=== PATIENT | female | born 1945 | race Caucasian/White ===

== ENCOUNTER 2025-03-03 15:05 | Outpatient (CLI) | payer OTHER, SELFPAY | END 2025-03-03 15:06 | disposition home or self-care (01) | LOC: AMB 03-29 00:39 | PROVIDERS: Visit Provider Emergency Medicine | DX: R53.1 Weakness (principal) | CPT/HCPCS: A0425; A0427 ==

== ENCOUNTER 2025-03-03 15:46 | Emergency (ER) | payer OTHER, SELFPAY ==
[2025-03-03] VITALS (14 sets, daily range): BP systolic 122–208; BP diastolic 54–103; PULSE 57–80; RESP 10–25; O2SAT 95–100
--- NOTE | 2025-03-03 15:48 | CRLHL7_ITS ---
For Patients: As a result of the Cures Act, medical imaging exams and procedure reports are released immediately into your electronic medical record. You may view this report before your referring provider. If you have questions, please contact your health care provider. Indication: fall, altered mental status, left weakness, right seizure Technique: CT of the head without contrast. Coronal and sagittal reformats. Bone and soft tissue windows. Comparison: No prior studies available for comparison at this institution. Findings: There is a large heterogeneous intraparenchymal hematoma involving the majority of the right frontal lobe with diffuse adjacent vasogenic edema causing severe effacement of right cerebral sulci. The hematoma measures 6.2 centimeter transversely by 8.5 cm anterior-posterior by 7.3 cm craniocaudal. An additional 2.2 x 1.6 cm by 2.4 cm hematoma more inferiorly in the right frontal lobe appears to have a fluid fluid/hematocrit level. There is 2.1 centimeter [id number] midline shift. There is a 1.3 centimeter mixed attenuation subdural hematoma along the right frontal convexity and along the right temporal convexity with likely superimposed hygroma. Discussed with Dr. Garcia at 4:10 p.m. 03/03/2025. Impression : Large acute intraparenchymal hematoma in the right frontal lobe with acute subdural hematoma/hemato hygroma along the right frontal convexity and acute subdural hematoma along the right temporal lobe. Associated vasogenic edema with diffuse effacement of the right lateral ventricle and 3rd ventricle with 2 cm [id number] midline shift. Please note that all CT scans at this facility use dose modulation, iterative reconstruction, and/or weight-based dosing when appropriate to reduce radiation dose to as low as reasonably achievable. Dictated by Hans Bowie MD @ 03/03/2025 4:12:39 PM (Electronically Signed)
--- NOTE | 2025-03-03 15:48 | CRLHL7_ITS ---
For Patients: As a result of the Century Cures Act, medical imaging exams and procedure reports are released immediately into your electronic medical record. You may view this report before your referring provider. If you have questions, please contact your health care provider. INDICATION: Post intubation. TECHNIQUE: Chest 1 views. COMPARISON: None. FINDINGS: Cardiovascular and mediastinum: Heart size and vasculature are normal in caliber and appearance. Endotracheal tube with tip approximately 4.3 centimeters from the jason. Feeding tube with tip in the stomach and proximal port above the GE junction. Lungs and pleural spaces: Lungs are clear. No sign of infiltrate or mass. No sign of pleural effusion. No pneumothorax. Bones and soft tissues: No significant findings. IMPRESSION: Endotracheal tube with tip approximately 4.3 centimeters from the jason. Feeding tube with tip in the stomach and proximal port above the GE junction. Consider adjustment. Dictated by Oracio Hogue MD @ 03/03/2025 4:39:09 PM (Electronically Signed)
--- NOTE | 2025-03-03 15:49 | CRLHL7_ITS ---
For Patients: As a result of the Cures Act, medical imaging exams and procedure reports are released immediately into your electronic medical record. You may view this report before your referring provider. If you have questions, please contact your health care provider. Indication: Blunt trauma, altered mental status. Technique: Noncontrast axial CT of the cervical spine with coronal and sagittal reformats are provided. Comparison: No prior studies available for comparison at this institution. Findings: Normal alignment. No acute osseous or ligamentous abnormality. Grade 1 anterolisthesis at C7-T1. Moderate degenerative changes at the anterior atlantoaxial articulation. Multilevel disc and endplate degenerative changes. No fractures. No prevertebral or paraspinal edema. The lung apices are clear. C1-2: No spinal canal stenosis C2-3: No significant spinal canal stenosis or neural foraminal narrowing. C3-4: Severe left neural foraminal narrowing due to uncovertebral joint hypertrophy. No spinal canal stenosis C4-5: Shallow disc osteophyte complex and uncovertebral joint hypertrophy. Moderate left neural foraminal narrowing. No right neural foraminal narrowing. C5-6: No significant spinal canal stenosis. Uncovertebral joint hypertrophy. Shallow disc osteophyte complex. No neural foramen narrowing. C6-7: Uncovertebral joint hypertrophy and shallow disc osteophyte complex. Moderate left neural foraminal narrowing. No significant spinal canal stenosis or right neural foraminal narrowing. C7-T1: No significant spinal canal stenosis or neural foramen narrowing. Moderate left facet joint arthrosis. Impression : 1. No acute osseous abnormality. 2. Multilevel degenerative changes in the cervical spine detailed above. Please note that all CT scans at this facility use dose modulation, iterative reconstruction, and/or weight-based dosing when appropriate to reduce radiation dose to as low as reasonably achievable. Dictated by Hans Bowie MD @ 03/03/2025 4:21:23 PM (Electronically Signed)
[2025-03-03] MEDS: SUCCINYLCHOLINE 20 MG/ML INJ 140 MG IVP (16:02)
[2025-03-03] MEDS: ETOMIDATE 2 MG/ML inj 20 MG IVP (16:02)
[2025-03-03 16:04] LABS: Lactate* 1.6 mmol/L (0.5-1.9)
[2025-03-03 16:07] LABS: Hematocrit* 39.7 % (33.0-51.0); Hemoglobin* 13.5 gm/dL (12.0-16.0); Immature Granulocytes Pct Auto 1.5 %; Mean Corpuscular HGB Conc 34 gm/dL (32-36); Mean Corpuscular Hemoglobin 30 pg (26-34); Mean Corpuscular Volume 89 fL (80-100); RDW Coefficient of Variation % 12.3 % (11.5-15.5); Red Blood Count* 4.45 m/uL (4.00-5.20); White Blood Count* 11.02 K/uL (4.50-11.00)
[2025-03-03 16:10] LABS: Immature Granulocytes Abs Auto 0.20 K/uL (0.00-0.30); Lymphocytes Absolute Auto 2.10 K/uL (0.90-2.90); Slide Review Reflex No
[2025-03-03] MEDS: LEVETIRACETAM 1,000 mg/100 ml INFUSION 2000 MG IVPB (16:10)
[2025-03-03] MEDS: propofoL 1,000 MG/100 ML ML 9.75 MG IVPB (16:10)
[2025-03-03] MEDS: NICARDIPINE INFUSION 0.1 mg/ml 20 MG/200 ML BAG 50 MG IV (16:10)
[2025-03-03 16:23] LABS: Chloride* 100 mmol/L (96-114); Potassium* 4.1 mmol/L (3.6-5.1); Sodium* 132 mmol/L (135-149)
[2025-03-03 16:26] LABS: Anion Gap 12 mEq/L (7-15); Blood Urea Nitrogen* 20 mg/dL (7-30); Calcium* 8.7 mg/dL (8.4-10.6); Carbon Dioxide* 20 mmol/L (20-32); Creatinine* 0.6 mg/dL (0.5-1.5); Estimated Glomerular Filt Rate 92 ml/min; Glucose* 176 mg/dL (60-115)
[2025-03-03 16:31] LABS: Ethanol* < 0.01 % (0.01-0.03)
--- NOTE | 2025-03-03 16:33 | ED_ITS ---
HPI - General Adult General Chief complaint: Neuro Symptoms/Altered Deficit Stated complaint: stroke/TTA Time Seen by Provider: 03/03/25 15:48 History of Present Illness HPI narrative: History is limited by acuity and altered mental status 79-year-old female brought to the ER today by EMS. Report from EMS is that she lives at home her . She is generally healthy. No known meds or allergies. No chronic medical conditions. She was with her today and apparently feeling normal when she suddenly got dizzy and fell this afternoon. Sounds like the fall was somewhere around 2:00 p.m., estimated. Initially she was feeling dizzy but conversant. She was not able to get up sore called 911. When EMS arrived she was able to answer questions but seems a little bit slow with her of condition and mildly confused. Blood sugar was elevated. Not known to be diabetic. In route she had progressive somnolence. She is now minimally responsive. EMS notes that she had some seizure-like activity affecting her right upper extremity with her right arm flexed up ag ainst her chest. They are not sure if it was really a seizure or not. She is mostly kept her left arm extended. She is not moving her legs. She is not known to be anticoagulated. As far as we know no previous history. No previous strokes. was very shocked by her condition but will be coming in, in his own vehicle, once her son gets home. As far as we know she is full code. Exam Narrative: Exam Narrative: Primary Survey: A- patent. She is breathing. Nasal cannula in place. She has a little bit of clear saliva around her mouth but no signs of pooling secretions at this time. B- breathing easily. Lung sounds clear and equal. C- no active bleeding. Blood pressure stable. Symmetric pulses and cap refill in 4 extremities. D- somnolent. Response to pain by flexing her toes down. She does not really withdraw. GCS is 6 E1, V1, M4 she is holding her right arm flexed and her left arm extended. No clear seizure activity this time. Constitutional: Appears well-developed and well-nourished. Alert. Conversant. Non toxic. HENT: Head: No depressed skull fracture, Raccoon Eyes, Dior's sign, or hemotympanum. Face normal. TMs normal. Nose: Nose normal. Mouth/Throat: Oral mucosa is clear and moist. no trismus. Pharynx normal. Tonsils symmetric. No tonsillar enlargement, erythema, or exudate. Eyes: Gaze is conjugate. Not cooperating with EOM exam. She had her right pupil is larger than about 5 mm and minimally reactive. Left pupil is smaller a t about 3 mm and slightly reactive. round. No scleral icterus. Neck: Normal range of motion. Neck supple. No tracheal deviation present. No obvious midline step-off for signs of trauma. Cannot clear C-spine clinically. Cardiovascular: Normal rate, regular rhythm. No gallop. No friction rub. No murmur heard. Symmetric radial artery pulses Pulmonary/Chest: Effort normal. No stridor. No respiratory distress. No wheezes. No rales. No rhonchi . No tenderness. Abdominal: Soft. Nondistended. No bruising. No apparent tenderness. Musculoskeletal: RUE: Normal range of motion. No deformity LUE: Normal range of motion. No deformity RLE: Normal range of motion. No edema. No deformity LLE: Normal range of motion. No edema. No deformity Neurological: GCS is 6. Right sided flexion, left-sided extension. Unable do a complete sensory exam. Decreased GCS. Skin: Skin is warm and dry. No rash noted. No pallor. Normal capillary refill. Psychiatric: Not assessable Medical Decision Making MDM Narrative Medical decision making narrative: 79-year-old female brought to the ER today by EMS after she had a fall at home this afternoon. It sounds like she may have been dizzy and then fallen. She was a code stroke activation because of left-sided weakness per EMS and also possibly some seizure activity affecting her right upper extremity. I met the patient in the ER hallway and CT scanner. On my initial exam she was somnolent with a low GCS but protecting her airway. We got immediate noncontrast head CT and C-spine CT because of the fall. I reviewed the head CT scan while the patient was in the scanner as the images come off the machine. She has a very large right-sided intraparenchymal hemorrhage and also possibly a small right subdural. There does appear to be midline shift. We immediately transmitted these images to [facility] and placed a consult to [facility] discussed with neurosurgery as to whether not this bleed is survival. While this was occurring we brought the patient ER stable 1 established additional IV, tamika blood for labs, and took other resuscitative measures including oxygen, blood pressure monitoring. Blood pressure was hypertensive. We were preparing to intubate for RSI in anticipation of aggressive care if had a been thought that there was potential survive ability. I ordered RSI meds and Keppra for seizure prophylaxis. She was hypertensive, but will reassess blood pressure after RSI to see if her blood pressure comes down with pain control and sedation. I received a phone call back from the [facility], Dr. Celeste. She agrees the patient would warrant intubation and emergent transfer and will try to get neuro surgeries opinion about her imaging. RSI was performed using etomidate and succinylcholine. We ruled able to easily pass the tube into her trachea using a video laryngoscope. No hypoxia was encountered. We placed the patient on the ventilator with a goal of keeping her end-tidal CO2 a little bit below 40 mmHg. With goal was about 35. She was easy to ventilate. We are able to wean down her FiO2 below 50% keep her sats of 100. As we were doing this we noted that she was having dilation of her right pupil, about 5 or 6 mm. No other clear signs of herniation. We felt that our succinylcholine had had time to wear off and she was not still paralyzed. With signs of herniation we also ordered a bolus of 3% hypertonic saline for potential cerebral edema and impending herniation. While this was occurring her and son arrived. I met with the family to discuss her intracranial hemorrhage. We discussed that she is in critical condition and that there is a chance she could . I expressed my condolences. Her family are understandably shocked. We did try to repeat information a few times to make sure that they were comprehending. Post intubation chest x-ray confirmed appropriate position of our ET and OG tubes. No obvious pneumonia. Pupil exam remained about the same. Blood pressure remained elevated about 190/90. With intraparenchymal hemorrhage we did feel blood pressure control is indicated. We started the patient on nicardipine drip with a goal blood pressure to get her down to about 140 systolic. Cardozo catheter placed by nurses. CBC came back with a normal white count, normal hemoglobin, normal platelet counts. There was some delay in transport while we are awaiting arrival of ground EMS. Unfortunately helicopter is not flying today due to weather. She is transferred by ground EMS to go emergency to [facility]. Other labs came back with a glucose of 176. Venous lactic 1.6. Sodium 132. Coags are normal with an INR 1.0 and a APTT of 22. Alcohol undetectable. Lab Data Labs: Lab Results 03/03/25 Range/Units 16:00 WBC 11.02 H (4.50-11.00) K/uL RBC 4.45 (4.00-5.20) m/uL Hgb 13.5 (12.0-16.0) gm/dL Hct 39.7 (33.0-51.0) % MCV 89 (80-100) fL MCH 30 (26-34) pg MCHC 34 (32-36) gm/dL RDW Coeff of [place] 12.3 (11.5-15.5) % Plt Count 263 (140-440) K/uL Neut % (Auto) 69.5 (42.0-72.0) % Lymph % (Auto) 19.5 L (20-44) % Lanier % (Auto) 8.3 (0.0-11.0) % Eos % (Auto) 0.6 (0.0-7.0) % Baso % (Auto) 0.6 (0.0-3.0) % Neut # (Auto) 7.70 H (1.7-7.0) K/uL Lymph # (Auto) 2.10 (0.90-2.90) K/uL Lanier # (Auto) 0.90 (0.00-0.90) K/UL Eos # (Auto) 0.10 (0.00-0.50) K/uL Baso # (Auto) 0.10 (0.00-0.30) K/uL Abs Immat Gran (auto) 0.20 (0.00-0.30) K/uL Imm/Tot Granulo (auto) 1.5 % INR 1.00 (0.91-1.10) APTT 22 L (23-33) Seconds Sodium 132 L (135-149) mmol/L Potassium 4.1 (3.6-5.1) mmol/L Chloride 100 (96-114) mmol/L Carbon Dioxide 20 (20-32) mmol/L Anion Gap 12 (7-15) mEq/L BUN 20 (7-30) mg/dL Creatinine 0.6 (0.5-1.5) mg/dL Estimated GFR 92 ml/min Glucose 176 H (60-115) mg/dL Lactate 1.6 (0.5-1.9) mmol/L Calcium 8.7 (8.4-10.6) mg/dL Ethyl Alcohol < 0.01 (0.01-0.03) % Imaging Data CT scan - head: Attestation: I have reviewed the pertinent imaging results. My impression: Images reviewed as they were coming off the CT scanner. She has a large right- sided intraparenchymal bladder hemorrhage per probably also a small right-sided subdural. There is edema and midline shift. Unable to measure while in the CT scanner, but I think it is about a cm of shift from the right to the left. Radiologist's impression: Impression : Large acute intraparenchymal hematoma in the right frontal lobe with acute subdural hematoma/hemato hygroma along the right frontal convexity and acute subdural hematoma along the right temporal lobe. Associated vasogenic edema with diffuse effacement of the right lateral ventricle and 3rd ventricle with 2 cm [id number] midline shift. CT C spine: Attestation: I have reviewed the pertinent imaging results. Radiologist's impression: Impression : 1. No acute osseous abnormality. 2. Multilevel degenerative changes in the cervical spine detailed above. Chest x-ray: Attestation: I have reviewed the pertinent imaging results. My impression: Clear lungs. Tip of ET tube about 3-4 cm above the jason. OG tube projecting with its tip over the stomach. I do not see any pneumothorax. Critical Care Time Critical Care Time Critical Care Time: Yes Attestation: The patient required my highest level preparedness to intervene emergently and I personally spent this critical care time directly and personally managing the patient. This critical care time included: Obtaining a history; Examining the patient; Pulse oximetry; Ordering and reviewing of studies; Arranging urgent treatment with development of a management plan; Evaluation of patients response to treatment; Frequent reassessment discussions with other providers. This critical care time was performed to assess and manage the high probability of imminent life-threatening deterioration that could result in multiorgan failure. It was exclusive of separate billable procedures and treating other patients and teaching time. Total Critical Care Time in Minutes: 60 Discharge Plan Discharge Clinical Impression: Intracranial hemorrhage, Acute alteration in mental status Patient Disposition: Xfer Other Stand Alone Forms: [facility] Info Instructions Procedures Intubation Pre procedure diagnosis: Intracranial hemorrhage, low GCS Written consent by: health care proxy (Consent not obtainable due to critical illness. Family not available yet.) Verification/time out: correct patient, correct site and correct procedure Sedative: Etomidate (20 mg) paralytic: Succinylcholine (120 mg) Laryngoscope: Betsy (Size 3 video laryngoscope Betsy blade) ET Tube Size: 7 ET Tube Uncuffed: No Tube Secured Depth (cm): 22 Tube Secured Location: lips Tube Placement Confirmation: visualized tube passing through cords Intubation Complications: none Patient Tolerated Procedure: well Additional Comments: Post intubation chest x-ray shows tip of the ET tube about 3 4 cm above the jason. OG tube appears to be in place with its tip projecting over where the stomach would be.
[2025-03-03 16:37] LABS: INR 1.00 (0.91-1.10); Prothrombin Time 14.0 Seconds
--- NOTE | 2025-03-04 10:51 | ED.NURSE ---
Pharmac[facility] called to clarify sedation meds given to Pt while in [facility] ED. Accessed MAY to clarify meds given and doses.
--- NOTE | 2025-03-07 12:50 | RESP.RT ---
Chart audit for vent orders, code blue
== END 2025-03-03 17:05 | disposition other institution (70) ==
PROVIDERS: Emergency Provider Emergency Medicine
DX: S06.36AA Traumatic hemorrhage of cerebrum, unspecified, with loss of consciousness status unknown, initial encounter (principal); R41.82 Altered mental status, unspecified; I10 Essential (primary) hypertension; W18.30XA Fall on same level, unspecified, initial encounter; Y92.009 Unspecified place in unspecified non-institutional (private) residence as the place of occurrence of the external cause
CPT/HCPCS: 31500; 36415; 70450; 71045; 72125; 80048; 82077; 83605; 85025; 85610; 85730; 96365; 96375; 99285; 99291; J0330; J1953; J2404; J2704; J3010; J7030; J7131

== ENCOUNTER 2025-03-03 16:38 | Outpatient (CLI) | payer OTHER, SELFPAY | END 2025-03-03 16:39 | disposition home or self-care (01) | LOC: AMB 03-29 00:57 | PROVIDERS: Visit Provider Emergency Medicine | DX: I62.9 Nontraumatic intracranial hemorrhage, unspecified (principal); R41.82 Altered mental status, unspecified | CPT/HCPCS: A0425; A0434 ==